=== PATIENT | male | born 1940 | race Caucasian/White ===

== ENCOUNTER 2017-12-30 20:59 | Emergency (ER) | payer MEDICARE, OTHER ==
[~2017-12-30] VITALS: Ht 177.8 cm; Wt 81.1 kg
[2017-12-30] MEDS ORDERED: BLOOD PRESSURE MED (22:21)
[2017-12-31 00:31] VITALS: BP 102/70
== END 2017-12-31 02:19 | disposition home or self-care (01) ==
LOC: ED 23:59
DX: F10.120 Alcohol abuse with intoxication, uncomplicated (principal); I10 Essential (primary) hypertension
CPT/HCPCS: 99283